=== PATIENT | female | born 1980 ===

== ENCOUNTER 2016-10-20 20:22 | Emergency (ER) | payer OTHER ==
[2016-10-20 20:22] VITALS: BMI 21.2
[2016-10-20 20:33] VITALS: TEMP 98.9; O2SAT 99
[2016-10-20] MEDS ORDERED: TDAP Vaccine 0.5 mL Syr IM ONE (20:52)
--- NOTE | 2016-10-20 20:56 | ED PDOC ---
Arrival/HPI - General Chief Complaint: Abnormal Skin Integrity Time Seen by Provider: 10/20/16 20:52 Historian: Patient - History of Present Illness Narrative History of Present Illness (Text): 10/20/16 20:54 36-year-old female presents today with a laceration to the right hand between the fourth and fifth fingers. Patient states she was washing a glass and there was a broken piece that cut her finger. She denies foreign body sensation. Denies numbness weakness or tingling in the extremity. Denies decreased range of motion of the fingers. Patient is unsure of her last tetanus shot. Incident occurred prior to arrival. No other complaints Time/Duration: Prior to Arrival Symptom Onset: Sudden Symptom Course: Improving Quality: Stabbing Severity Level: 1 Past Medical History - Provider Review Nursing Documentation Reviewed: Yes - Travel History Have you recently traveled outside [place] w/in the past 3 mons?: No - Tetanus Immunization Tetanus Immunization: Unknown - Past Medical History Past Medical History: No Previous - Psychiatric Hx Substance Use: No - Past Surgical History Past Surgical History: No Previous - Surgical History Hx Tubal Ligation: Yes - Suicidal Assessment Feels Threatened In Home Enviroment: No Family/Social History - Physician Review Nursing Documentation Reviewed: Yes Family/Social History: Unknown Family HX Smoking Status: Never Smoked Hx Alcohol Use: No Hx Substance Use: No Allergies/Home Meds Allergies/Adverse Reactions: Allergies ibuprofen Allergy (Verified 10/20/16 20:34) SWELLING walnut Allergy (Verified 10/20/16 20:34) ANAPHYLAXIS Review of Systems - Review of Systems Constitutional: absent: Fatigue, Fevers Respiratory: absent: SOB, Cough Cardiovascular: absent: Chest Pain, Palpitations Gastrointestinal: absent: Abdominal Pain, Nausea, Vomiting Musculoskeletal: Arthralgias. absent: Back Pain, Neck Pain Skin: Laceration. absent: Rash, Pruritis Neurological: absent: Headache, Dizziness Psychiatric: absent: Anxiety, Depression Physical Exam Vital Signs Reviewed: Yes Vital Signs Temp Pulse Resp BP Pulse Ox 10/20/16 20:33 98.9 F 95 H 18 119/78 99 Temperature: Afebrile Blood Pressure: Normal Pulse: Regular Respiratory Rate: Normal Appearance: Positive for: Well-Appearing, Non-Toxic, Comfortable Pain Distress: None Mental Status: Positive for: Alert and Oriented X 3 - Systems Exam Head: Present: Atraumatic Respiratory/Chest: Present: Clear to Auscultation Cardiovascular: Present: Regular Rate and Rhythm Upper Extremity: Present: Normal ROM, NORMAL PULSES, Tenderness (right hand; there is minimal tenderness along the webspacing of the 4th and 5th fingers with a 1cm c shaped laceration; no active bleeding; full rom of fingers sensation and distal pulses intact. ), Neurovascularly Intact, Capillary Refill < 2s. No: Swelling, Erythema, Deformity Skin: Present: Warm, Dry, Normal Color Psychiatric: Present: Alert, Oriented x 3 Medical Decision Making ED Course and Treatment: 10/20/16 21:01 Patient is nontoxic well appearing in no distress. Vital signs are stable. Wound irrigated well with high pressure irrigation Tetanus updated tylenol PO Laceration repair: [address] Bacitracin and dressing applied Patient was advised to keep the wound clean and dry, apply bacitracin twice daily. Advised to return immediately if signs of infection develop or return if any other concerning symptoms develop Impression: Laceration, hand Tylenol; every 4 hours as needed for pain keflex; 1 capsule 4 times daily x 5 days Keep the wound clean and dry, apply bacitracin twice daily Return in 7-10 days for suture removal Return immediately if signs of infection develop: High fevers, increasing pain, redness, swelling, purulent discharge Follow up with the hand/plastic surgeon within the next 2 days. Followup with primary care physician within the next 2 days Return if any other concerning symptoms develop Procedure: Wound Repair - Procedure Procedure: Wound Repair: laceration, right hand - Consent Obtained Consent obtained: Verbal - Performed by Performed by: Mid-level Provider - Indications Indication(s):: Laceration - Location Location:: Right, Hand (between 4th and 5th fingers) Shape:: Curvilinear Dimensions Length cm: 1cm Depth:: Epidermis - Anesthetic Technique Anesthetic Technique: Local Local/Regional Anesthetic:: Lidocaine 1% (2cc) - Debris Debris:: None - Irrigated Irrigated with ml of normal saline: copious amounts of NS using high pressure irrigation - Complexity Complexity:: Simple (one layer) - Wound repair method Sutures:: # (3), Size (5.0), Type (prolene), Technique (interrupted) - Complications Complications: none - Patient tolerated procedure Patient Tolerated Procedure:: Well Disposition/Present on Arrival - Present on Arrival Any Indicators Present on Arrival: No History of DVT/PE: No History of Uncontrolled Diabetes: No Urinary Catheter: No History of Decub. Ulcer: No History Surgical Site Infection Following: None - Disposition Have Diagnosis and Disposition been Completed?: Yes Diagnosis: Laceration of hand Disposition: HOME/ ROUTINE Disposition Time: 21:03 Patient Plan: Discharge Condition: GOOD Discharge Instructions (ExitCare): Laceration (ED), Care For Your Stitches (ED) Additional Instructions: Tylenol; every 4 hours as needed for pain keflex; 1 capsule 4 times daily x 5 days Keep the wound clean and dry, apply bacitracin twice daily Return in 7-10 days for suture removal Return immediately if signs of infection develop: High fevers, increasing pain, redness, swelling, purulent discharge Follow up with the hand/plastic surgeon within the next 2 days. Followup with primary care physician within the next 2 days Return if any other concerning symptoms develop Prescriptions: Cephalexin [Keflex] 500 mg PO QID #20 capsule Referrals: Seven Dove MD [Staff Provider] - Follow up with primary Supa Figueroa MD [Staff Provider] - Follow up with primary Forms: [employer] (Amharic)
[2016-10-20 21:55] VITALS: BP 112/61; PULSE 72; RESP 16
== END 2016-10-20 21:55 | disposition home or self-care (01) ==
LOC: ED 20:22
DX: S61.411A Laceration without foreign body of right hand, initial encounter (principal); W25.XXXA Contact with sharp glass, initial encounter; Y93.G1 Activity, food preparation and clean up; Y92.89 Other specified places as the place of occurrence of the external cause; Z23 Encounter for immunization

== ENCOUNTER 2017-07-05 06:08 | Emergency (ER) | payer MEDICAID, OTHER ==
[2017-07-05 06:11] VITALS: BMI 22.3
[2017-07-05 06:16] VITALS: RESP 18; O2SAT 99
--- NOTE | 2017-07-05 06:27 | ED PDOC ---
Arrival/HPI - General Time Seen by Provider: 07/05/17 06:12 Historian: Spouse, EMS - History of Present Illness Narrative History of Present Illness (Text): 07/05/17 06:19 Alysa Campos is a 36 year old female, with no significant past medical history , who presents to the Emergency department brought in by EMS accompanied by spouse complaining of altered mental status. states patient woke up today and stated she was not feeling well. states he went back to sleep and when he woke up again, patient was lying on the floor. Patient on arrival appears confused, states she "wants to go to sleep," and "my kids are here," however patient's children are back home. Patient reports some abdominal pain. Limited HPI and ROS secondary to patient's altered mental status. Time/Duration: Prior to Arrival Symptom Onset: Sudden Symptom Course: Unchanged Activities at Onset: Light Context: Home Past Medical History - Provider Review Nursing Documentation Reviewed: Yes - Infectious Disease Hx of Infectious Diseases: None - Tetanus Immunization Tetanus Immunization: Unknown - Past Medical History Past Medical History: No Previous - Cardiac Hx Cardiac Disorders: No - Pulmonary Hx Respiratory Disorders: No - Neurological Hx Neurological Disorder: No - HEENT Hx HEENT Disorder: Yes (SEASONAL ALLERGIES) - Renal Hx Renal Disorder: No - Endocrine/Metabolic Hx Endocrine Disorders: No - Hematological/Oncological Hx Blood Disorders: No - Integumentary Hx Dermatological Disorder: No - Musculoskeletal/Rheumatological Hx Musculoskeletal Disorders: No - Gastrointestinal Hx Gastrointestinal Disorders: Yes Hx Gastritis: Yes Hx Gastroesophageal Reflux: Yes - Genitourinary/Gynecological Hx Genitourinary Disorders: No - Psychiatric Hx Psychophysiologic Disorder: No Hx Substance Use: No - Past Surgical History Past Surgical History: No Previous - Surgical History Hx Tubal Ligation: Yes - Anesthesia Hx Anesthesia: Yes Hx Anesthesia Reactions: No Hx Malignant Hyperthermia: No - Suicidal Assessment Feels Threatened In Home Enviroment: No Family/Social History - Physician Review Nursing Documentation Reviewed: Yes Family/Social History: Unknown Family HX Smoking Status: Never Smoked Hx Alcohol Use: No Hx Substance Use: No Allergies/Home Meds Allergies/Adverse Reactions: Allergies ibuprofen Allergy (Verified 07/05/17 06:11) SWELLING polyethylene glycol 3350 Allergy (Verified 07/05/17 06:11) ITCHING walnut Allergy (Verified 07/05/17 06:11) ANAPHYLAXIS Home Medications: Home Meds Medication Instructions Recorded Confirmed Cetirizine HCl 1 tab PO DAILY 01/26/17 07/05/17 Review of Systems - Review of Systems Systems not reviewed;Unavailable: Altered Mental Status Physical Exam Vital Signs Reviewed: Yes Vital Signs Temp Pulse Resp BP Pulse Ox 07/05/17 08:51 99.9 F H 18 L 18 105/79 99 07/05/17 08:47 99.9 F H 88 18 105/79 99 07/05/17 06:15 97.3 F L 81 18 116/73 99 Temperature: Afebrile Blood Pressure: Normal Respiratory Rate: Normal Appearance: Positive for: Non-Toxic Mental Status: Positive for: Confused Finger Stick Blood Glucose: 117 - Systems Exam Head: Present: Atraumatic, Normocephalic Pupils: Present: PERRL Extroacular Muscles: Present: EOMI Conjunctiva: Present: Normal Mouth: Present: Moist Mucous Membranes Neck: Present: Normal Range of Motion Respiratory/Chest: Present: Clear to Auscultation, Good Air Exchange. No: Respiratory Distress, Accessory Muscle Use Cardiovascular: Present: Regular Rate and Rhythm, Normal S1, S2. No: Murmurs Abdomen: No: Tenderness, Distention, Peritoneal Signs Upper Extremity: Present: Normal Inspection. No: Cyanosis, Edema Lower Extremity: Present: Normal Inspection. No: Edema Neurological: Present: GCS=15, Speech Normal, Motor Func Grossly Intact, Normal Sensory Function Skin: Present: Warm, Dry, Normal Color. No: Rashes Psychiatric: Present: Other (Confused) Medical Decision Making ED Course and Treatment: 07/05/17 06:19 Impression: 36 year old female brought in for altered mental status, was found lying on the floor by this morning. Plan: -- EKG -- Labs, alcohol level, ammonia level, cardiac enzymes, TSH -- Urinalysis, urine drug screen -- Reassess and disposition Progress Notes: Reviewed EKG, NSR at [address]-segment elevations or depressions, no T-wave inversions, normal intervals. - Lab Interpretations Lab Results: 07/05/17 07:00 07/05/17 07:00 Lab Results 07/05/17 07:27: Urine Opiates Screen Negative, Urine Methadone Screen Negative, Ur Barbiturates Screen Negative, Ur Phencyclidine Scrn Negative, Ur Amphetamines Screen Negative, U Benzodiazepines Scrn Negative, U Oth Cocaine Metabols Negative, U Cannabinoids Screen Negative 07/05/17 07:09: Urine Color Yellow, Urine Appearance Clear, Urine pH 7.5, Ur Specific [place] 1.015, Urine Protein Trace H, Urine Glucose (UA) Negative, Urine Ketones Negative, Urine Blood Negative, Urine Nitrate Negative, Urine Bilirubin Negative, Urine Urobilinogen 1.0 H, Ur Leukocyte Esterase Negative, Urine RBC 0 - 2, Urine WBC 2 - 5, Ur Epithelial Cells 6 - 8, Urine Bacteria Many , Urine Other Uyeast 07/05/17 07:00: Acetaminophen < 10.0 L 07/05/17 07:00: TSH 3rd Generation 2.36, Alcohol, Quantitative < 10 07/05/17 07:00: Sodium 143, Potassium 4.2, Chloride 106, Carbon Dioxide 24, Anion Gap 18, BUN 16, Creatinine 0.7, Est GFR ( Amer) > 60, Est GFR (Non- Af Amer) > 60, Random Glucose 134 H, Calcium 8.9, Phosphorus 2.5, Magnesium 1.9 , Total Bilirubin 0.1 L, AST 22, ALT 38, Alkaline Phosphatase 64, Lactate Dehydrogenase 412, Total Creatine Kinase 79, Troponin I < 0.01, Total Protein 7.4, Albumin 4.3, Globulin 3.0, Albumin/Globulin Ratio 1.4 07/05/17 07:00: PT 11.3, INR 0.98, APTT 24.7 L 07/05/17 07:00: WBC 10.3, RBC 3.98, Hgb 12.0, Hct 35.7 L, MCV 89.7, MCH 30.2, MCHC 33.6, RDW 12.5, Plt Count 164, MPV 11.6 H, Gran % 73.5 H, Lymph % (Auto) 23.1, [place] % (Auto) 2.0, Eos % (Auto) 1.3 L, Baso % (Auto) 0.1, Gran # 7.55 H, Lymph # (Auto) 2.4, [place] # (Auto) 0.2, Eos # (Auto) 0.1, Baso # (Auto) 0.01 07/05/17 06:14: POC Glucose (mg/dL) 117 H - RAD Interpretation Radiology Orders: 05/10/18 06:46 HEAD W/O CONTRAST [CT] Stat - EKG Interpretation Interpreted by ED Physician: Yes Type: 12 lead EKG - Transfer of Care Patient signed out to Dr:: turner labs ct and dispo - Scribe Statement The provider has reviewed the documentation as recorded by the Jak Schwartz Provider Scribe Attestation: All medical record entries made by the Scribe were at my direction and personally dictated by me. I have reviewed the chart and agree that the record accurately reflects my personal performance of the history, physical exam, medical decision making, and the department course for this patient. I have also personally directed, reviewed, and agree with the discharge instructions and disposition. Disposition/Present on Arrival - Present on Arrival Any Indicators Present on Arrival: No History of DVT/PE: No History of Uncontrolled Diabetes: No Urinary Catheter: No History of Decub. Ulcer: No History Surgical Site Infection Following: None - Disposition Have Diagnosis and Disposition been Completed?: Yes Diagnosis: Anxiety Disposition: HOME/ ROUTINE Disposition Time: 07:00 Condition: GOOD Discharge Instructions (ExitCare): Anxiety, Adult (DC) Additional Instructions: Thank you for letting us take care of you today. The emergency medical care you received today was directed at your acute symptoms. If you were prescribed any medication, please fill it and take as directed. It may take several days for your symptoms to resolve. Return to the Emergency Department if your symptoms worsen, do not improve, or if you have any other problems. Please contact your doctor or call one of the physicians/clinics you have been referred to that are listed on the Patient Visit Information form that is included in your discharge packet. Bring any paperwork you were given at discharge with you along with any medications you are taking to your follow up visit. Our treatment cannot replace ongoing medical care by a primary care provider (PCP) outside of the emergency department. Thank you for allowing the [facility] team to be part of your care today. Follow up with your primary doctor in 1-2 days. He/she may refer you to a psychologist. Please return to the emergency room if you have any concerns. Referrals: [employer] [facility], [Non-Staff] - Follow up with primary Forms: [employer] (Occitan)
[2017-07-05 07:08] LABS: BASO # 0.01 K/mm3 (0.0-2.0); BASO % 0.1 % (0.0-3.0); EOS # 0.1 (0.0-0.7); EOS % 1.3 % (1.5-5.0); GRAN # 7.55 (1.4-6.5); GRAN % 73.5 % (50.0-68.0); LYMPH # 2.4 (1.2-3.4); LYMPH % 23.1 % (22.0-35.0); MEAN CELL VOLUME 89.7 fl (80.0-105.0); MEAN CORPUSCULAR HEMOGLOBIN 30.2 pg (25.0-35.0); MEAN CORPUSCULAR HGB CONC 33.6 g/dl (31.0-37.0); MEAN PLATELET VOLUME 11.6 fl (7.0-11.0); MONO # 0.2 (0.1-0.6); RBC 3.98 10^6/uL (3.5-6.1); RED CELL DISTRIBUTION WIDTH 12.5 % (11.5-14.5); WHITE BLOOD COUNT 10.3 10^3/ul (4.5-11.0)
--- NOTE | 2017-07-05 07:08 | ED PDOC ---
Physical Exam Vital Signs Temp Pulse Resp BP Pulse Ox 07/05/17 08:51 99.9 F H 18 L 18 105/79 99 07/05/17 08:47 99.9 F H 88 18 105/79 99 07/05/17 06:15 97.3 F L 81 18 116/73 99 Finger Stick Blood Glucose: 117 Medical Decision Making ED Course and Treatment: 07/05/17 07:00 Case signed out to me by Dr. Thakur. Patient is a 36 year old female, with no significant past medical history, who was brought in via EMS, accompanied by spouse complaining of altered mental status. states patient woke up earlier and stated she was not feeling well. states he went back to sleep and when he woke up again, patient was lying on the floor. Currently pending CT scan and labs. 07/05/17 08:[address]: Creator : STEPHANIE WEBSTER FINDINGS: Brain: Unremarkable. No hemorrhage. No significant white matter disease. No edema. Ventricles: Unremarkable. No ventriculomegaly. Bones/joints: Unremarkable. No acute fracture. Soft tissues: Unremarkable. Sinuses: Unremarkable as visualized. No acute sinusitis. Mastoid air cells: Unremarkable as visualized. No mastoid effusion. IMPRESSION: Unremarkable head/brain CT. - Lab Interpretations Lab Results: 07/05/17 07:00 07/05/17 07:00 Lab Results 07/05/17 07:27: Urine Opiates Screen Negative, Urine Methadone Screen Negative, Ur Barbiturates Screen Negative, Ur Phencyclidine Scrn Negative, Ur Amphetamines Screen Negative, U Benzodiazepines Scrn Negative, U Oth Cocaine Metabols Negative, U Cannabinoids Screen Negative 07/05/17 07:09: Urine Color Yellow, Urine Appearance Clear, Urine pH 7.5, Ur Specific [place] 1.015, Urine Protein Trace H, Urine Glucose (UA) Negative, Urine Ketones Negative, Urine Blood Negative, Urine Nitrate Negative, Urine Bilirubin Negative, Urine Urobilinogen 1.0 H, Ur Leukocyte Esterase Negative, Urine RBC 0 - 2, Urine WBC 2 - 5, Ur Epithelial Cells 6 - 8, Urine Bacteria Many , Urine Other Uyeast 07/05/17 07:00: Acetaminophen < 10.0 L 07/05/17 07:00: TSH 3rd Generation 2.36, Alcohol, Quantitative < 10 07/05/17 07:00: Sodium 143, Potassium 4.2, Chloride 106, Carbon Dioxide 24, Anion Gap 18, BUN 16, Creatinine 0.7, Est GFR ( Amer) > 60, Est GFR (Non- Af Amer) > 60, Random Glucose 134 H, Calcium 8.9, Phosphorus 2.5, Magnesium 1.9 , Total Bilirubin 0.1 L, AST 22, ALT 38, Alkaline Phosphatase 64, Lactate Dehydrogenase 412, Total Creatine Kinase 79, Troponin I < 0.01, Total Protein 7.4, Albumin 4.3, Globulin 3.0, Albumin/Globulin Ratio 1.4 07/05/17 07:00: PT 11.3, INR 0.98, APTT 24.7 L 07/05/17 07:00: WBC 10.3, RBC 3.98, Hgb 12.0, Hct 35.7 L, MCV 89.7, MCH 30.2, MCHC 33.6, RDW 12.5, Plt Count 164, MPV 11.6 H, Gran % 73.5 H, Lymph % (Auto) 23.1, [place] % (Auto) 2.0, Eos % (Auto) 1.3 L, Baso % (Auto) 0.1, Gran # 7.55 H, Lymph # (Auto) 2.4, [place] # (Auto) 0.2, Eos # (Auto) 0.1, Baso # (Auto) 0.01 07/05/17 06:14: POC Glucose (mg/dL) 117 H - RAD Interpretation Radiology Orders: 07/05/17 06:46 HEAD W/O CONTRAST [CT] Stat - Scribe Statement The provider has reviewed the documentation as recorded by the Jak Fernandez Provider Scribe Attestation: All medical record entries made by the Scribe were at my direction and personally dictated by me. I have reviewed the chart and agree that the record accurately reflects my personal performance of the history, physical exam, medical decision making, and the department course for this patient. I have also personally directed, reviewed, and agree with the discharge instructions and disposition. Disposition/Present on Arrival - Present on Arrival Any Indicators Present on Arrival: No History of DVT/PE: No History of Uncontrolled Diabetes: No Urinary Catheter: No History of Decub. Ulcer: No History Surgical Site Infection Following: None - Disposition Have Diagnosis and Disposition been Completed?: Yes Diagnosis: Anxiety Disposition: HOME/ ROUTINE Disposition Time: 08:15 Condition: GOOD Discharge Instructions (ExitCare): Anxiety, Adult (DC) Additional Instructions: Thank you for letting us take care of you today. The emergency medical care you received today was directed at your acute symptoms. If you were prescribed any medication, please fill it and take as directed. It may take several days for your symptoms to resolve. Return to the Emergency Department if your symptoms worsen, do not improve, or if you have any other problems. Please contact your doctor or call one of the physicians/clinics you have been referred to that are listed on the Patient Visit Information form that is included in your discharge packet. Bring any paperwork you were given at discharge with you along with any medications you are taking to your follow up visit. Our treatment cannot replace ongoing medical care by a primary care provider (PCP) outside of the emergency department. Thank you for allowing the [facility] team to be part of your care today. Follow up with your primary doctor in 1-2 days. He/she may refer you to a psychologist. Please return to the emergency room if you have any concerns. Referrals: [employer] Jose Raul Recorey, [Primary Care Provider] - Follow up with primary Forms: [employer] ([place])
[2017-07-05 07:22] LABS: ALB/GLOB RATIO 1.4 (1.1-1.8); ALBUMIN 4.3 g/dL (3.0-4.8); ALT/SGPT 38 U/L (7-56); AST/SGOT 22 U/L (14-36); BLOOD UREA NITROGEN 16 mg/dL (7-21); CALCIUM 8.9 mg/dL (8.4-10.5); GFR AFRICAN-AMERICAN > 60; GFR NON-AFRICAN AMERICAN > 60
[2017-07-05 07:24] LABS: PH,URINE 7.5 (4.7-8.0); URINE BILIRUBIN NEGATIVE (NEGATIVE); URINE BLOOD NEGATIVE (NEGATIVE); URINE GLUCOSE (UA) NEGATIVE (NEGATIVE); URINE LEUKOCYTE ESTERASE NEGATIVE Leu/uL (NEGATIVE); URINE PROTEIN TRACE mg/dL (<30 mg/dL)
[2017-07-05 07:29] LABS: URINE APPEARANCE CLEAR (CLEAR); URINE COLOR YELLOW (YELLOW)
[2017-07-05 07:32] LABS: TROPONIN I < 0.01 ng/mL
[2017-07-05 07:34] LABS: URINE RBC 0 - 2 /hpf (0-2)
[2017-07-05 07:35] LABS: URINE BACTERIA MANY (NEG)
[2017-07-05 07:37] LABS: INR 0.98 (0.93-1.08); PARTIAL THROMBOPLASTIN TIME 24.7 Seconds (25.1-36.5); PROTHROMBIN TIME 11.3 SECONDS (9.4-12.5)
[2017-07-05 07:53] LABS: BARBITURATES, UR NEGATIVE (NEGATIVE); BENZODIAZEPINES, UR NEGATIVE (NEGATIVE); OPIATES, UR NEGATIVE (NEGATIVE); PHENCYCLIDINE, UR NEGATIVE (NEGATIVE)
--- NOTE | 2017-07-05 08:06 | CT ---
EXAM: CT Head Without Intravenous Contrast CLINICAL HISTORY: 36 years old, female; Signs and symptoms; Altered mental status/memory loss; Confusion or disorientation; Additional info: AMS TECHNIQUE: Axial computed tomography images of the head/brain without intravenous contrast. All CT scans at this facility use one or more dose reduction techniques, viz.: automated exposure control; ma/kV adjustment per patient size (including targeted exams where dose is matched to indication; i.e. head); or iterative reconstruction technique. Coronal and sagittal reformatted images were created and reviewed. COMPARISON: No relevant prior studies available. FINDINGS: Brain: Unremarkable. No hemorrhage. No significant white matter disease. No edema. Ventricles: Unremarkable. No ventriculomegaly. Bones/joints: Unremarkable. No acute fracture. Soft tissues: Unremarkable. Sinuses: Unremarkable as visualized. No acute sinusitis. Mastoid air cells: Unremarkable as visualized. No mastoid effusion. IMPRESSION: Unremarkable head/brain CT.
[2017-07-05 08:51] VITALS: BP 105/79; TEMP 99.9
[2017-07-05 08:53] VITALS: PULSE 18
--- NOTE | 2017-07-05 10:32 | CARD ---
APPROVED REPORT EKG Measurement Heart [id number] <Conclusion> Normal sinus rhythm Mild NSSTW changes
== END 2017-07-05 08:52 | disposition home or self-care (01) ==
LOC: ED 06:08
DX: F41.9 Anxiety disorder, unspecified (principal)
CPT/HCPCS: 70450; 80053; 81001; 82550; 82948; 83615; 83735; 84100; 84443; 84484; 85025; 85610; 85730; 93005; 99284; G0480

== ENCOUNTER 2017-10-28 07:38 | Emergency (ER) | payer OTHER ==
[2017-10-28 07:39] VITALS: BMI 22.3
[2017-10-28 07:50] VITALS: RESP 18; O2SAT 100
--- NOTE | 2017-10-28 08:30 | ED PDOC ---
Arrival/HPI - General Historian: Patient - History of Present Illness Symptom Onset: Gradual Symptom Course: Worsening Quality: Pressure Severity Level: 8 - General Chief Complaint: Female Genitourinary Time Seen by Provider: 10/28/17 07:46 - History of Present Illness Narrative History of Present Illness (Text): 10/28/17 08:26 37 year old female, with a history of PUD and tubal ligation 5 years ago, presents to the ED with right sided pelvic pain that started 4 days ago. Patient states the pain has progressively worsened, described as a constant sharp, squeezing pain that is non-radiating. Patient states Tylenol did help relieve the pain. She also took ampicillin that she had at home from a previous prescription and states that provided no relief. She is unable to sip up straight and has pain with inspiration. Her last period was October 15 and states she passed a very large clot which is not normal for her. She usually has periods at the beginning of the month and noticed some spotting on October 25 that resolved. She has not had a bowel movement in 2 days. She denies any fever, chills, nausea, vomiting, shortness of breath, chest pain, palpitations, pain with urination, or hematuria. PMD: Dr. Jones ([place]) ([facility]) Past Medical History - Provider Review Nursing Documentation Reviewed: Yes - Infectious Disease Hx of Infectious Diseases: None - Tetanus Immunization Tetanus Immunization: Unknown - Past Medical History Past Medical History: No Previous - Cardiac Hx Cardiac Disorders: No - Pulmonary Hx Respiratory Disorders: No - Neurological Hx Neurological Disorder: No - HEENT Hx HEENT Disorder: Yes (SEASONAL ALLERGIES) - Renal Hx Renal Disorder: No - Endocrine/Metabolic Hx Endocrine Disorders: No - Hematological/Oncological Hx Blood Disorders: No - Integumentary Hx Dermatological Disorder: No - Musculoskeletal/Rheumatological Hx Musculoskeletal Disorders: No - Gastrointestinal Hx Gastrointestinal Disorders: Yes Hx Gastritis: Yes Hx Gastroesophageal Reflux: Yes - Genitourinary/Gynecological Hx Genitourinary Disorders: No - Psychiatric Hx Psychophysiologic Disorder: No Hx Substance Use: No - Past Surgical History Past Surgical History: No Previous - Surgical History Hx Tubal Ligation: Yes - Anesthesia Hx Anesthesia: Yes Hx Anesthesia Reactions: No Hx Malignant Hyperthermia: No - Suicidal Assessment Feels Threatened In Home Enviroment: No Family/Social History - Physician Review Nursing Documentation Reviewed: Yes Family/Social History: No Known Family HX Smoking Status: Never Smoked Hx Alcohol Use: No Hx Substance Use: No Allergies/Home Meds Allergies/Adverse Reactions: Allergies ibuprofen Allergy (Verified 10/28/17 07:47) SWELLING polyethylene glycol 3350 Allergy (Verified 10/28/17 07:47) ITCHING walnut Allergy (Verified 10/28/17 07:47) ANAPHYLAXIS Home Medications: Home Meds Medication Instructions Recorded Confirmed No Known Home Med 10/28/17 10/28/17 Review of Systems - Physician Review All systems were reviewed & negative as marked: Yes - Review of Systems Constitutional: absent: Fevers, Night Sweats Eyes: absent: Vision Changes ENT: absent: Tinnitus Respiratory: absent: SOB, Cough Cardiovascular: absent: Chest Pain, Palpitations Gastrointestinal: Abdominal Pain, Constipation. absent: Nausea, Vomiting Genitourinary Female: absent: Dysuria, Hematuria Musculoskeletal: absent: Back Pain, Neck Pain Skin: absent: Rash, Skin Lesions Neurological: absent: Headache, Dizziness Endocrine: absent: Diaphoresis Physical Exam Vital Signs Reviewed: Yes Temperature: Afebrile Blood Pressure: Normal Pulse: Regular Respiratory Rate: Normal Appearance: Positive for: Well-Appearing, Non-Toxic, Uncomfortable Pain Distress: Moderate Mental Status: Positive for: Alert and Oriented X 3 - Systems Exam Head: Present: Atraumatic, Normocephalic Pupils: Present: PERRL Extroacular Muscles: Present: EOMI Conjunctiva: Present: Normal Mouth: Present: Moist Mucous Membranes Respiratory/Chest: Present: Clear to Auscultation, Good Air Exchange. No: Respiratory Distress, Accessory Muscle Use Cardiovascular: Present: Regular Rate and Rhythm, Normal S1, S2. No: Murmurs Abdomen: Present: Tenderness, Guarding. No: Distention, Peritoneal Signs, Rebound, McBurney's Point Tender, Rovsing's Sign Present Neurological: Present: Speech Normal Skin: Present: Warm, Dry Psychiatric: Present: Alert, Oriented x 3 Vital Signs Temp Pulse Resp BP Pulse Ox 10/28/17 11:12 98 F 66 18 107/67 100 10/28/17 11:10 98 F 66 18 107/67 100 10/28/17 07:43 98.3 F 84 18 109/51 L 100 Medical Decision Making ED Course and Treatment: 10/28/17 08:34 37F presents to the ED with new onset, worsening right sided pelvic pain for the past 4 days. UA, CBC, CMP, and Lipase ordered. test negative. Tylenol for pain. NPO diet. Transvaginal US ordered to rule out ovarian cyst or torsion. Date of service: 10/28/2017 HISTORY: r/o cyst vs torsion COMPARISON: None available. TECHNIQUE: Real-time transabdominal pelvic ultrasound was performed. In addition a transvaginal pelvic ultrasound was necessary to better depict pelvic anatomy. FINDINGS: UTERUS: Measures 7.2 x 3.5 x 3.7 cm. ENDOMETRIUM: Measures 3 mm in diameter. CERVIX: Cervix length measures approximately 3.6 cm. 4 mm nabothian cyst. RIGHT OVARY: Measures 3.7 x 2.2 x 2.2 cm. Blood flow is demonstrated. 1.3 cm dominant follicle. LEFT OVARY: Measures 2.4 x 1.3 x 0.9 cm. Blood flow is demonstrated. 0.6 cm follicle. 0.8 cm adnexal cyst. FREE FLUID: Small pelvic free fluid. OTHER FINDINGS: None. IMPRESSION: Bilateral dominant ovarian follicles. 8 mm adnexal cyst. Small pelvic free fluid. Patient states pain has improved with pain medication. 10/28/17 11:08 10/28/17 12:06 (Hans Ham) Patient is a 37 year old female whose past medical history includes PUD and tubal ligation, presenting to the ER with non-radiating worsening/constant right -side pelvic pain. R sided pelvic tenderness on exam. Patient Seen With Resident: In agreement with resident note which contains more details about the patient. Patient was seen and evaluated with resident. Came up with plan and treatment together. 10/28/17 12:39 (Dimitri Arauz) - Lab Interpretations Lab Results: 10/28/17 09:00 10/28/17 09:00 Lab Results 10/28/17 09:00: Sodium 139, Potassium 4.0, Chloride 103, Carbon Dioxide 27, Anion Gap 14, BUN 11, Creatinine 0.6 L, Est GFR ( Amer) > 60, Est GFR ( Non-Af Amer) > 60, Random Glucose 96, Calcium 8.9, Total Bilirubin 0.5, AST 25, ALT 22, Alkaline Phosphatase 67, Total Protein 7.8, Albumin 4.3, Globulin 3.5, Albumin/Globulin Ratio 1.2, Lipase 34 10/28/17 09:00: WBC 10.0, RBC 3.97, Hgb 11.9 L, Hct 34.9 L, MCV 87.9, MCH 30.0, MCHC 34.1, RDW 12.5, Plt Count 157, MPV 12.0 H, Gran % 78.5 H, Lymph % (Auto) 15.9 L, [place] % (Auto) 5.0, Eos % (Auto) 0.4 L, Baso % (Auto) 0.2, Gran # 7.83 H , Lymph # (Auto) 1.6, [place] # (Auto) 0.5, Eos # (Auto) 0.0, Baso # (Auto) 0.02 10/28/17 09:00: Urine Color Yellow, Urine Appearance Clear, Urine pH 8.0, Ur Specific [place] 1.015, Urine Protein Trace H, Urine Glucose (UA) Negative, Urine Ketones Negative, Urine Blood Negative, Urine Nitrate Negative, Urine Bilirubin Negative, Urine Urobilinogen 1.0 H, Ur Leukocyte Esterase Negative, Urine RBC 0 - 2, Urine WBC 0 - 2, Ur Epithelial Cells 1 - 3, Urine Bacteria Few - RAD Interpretation Radiology Orders: 10/28/17 08:25 TRANSVAGINAL [US] Stat - Medication Orders Current Medication Orders: Discontinued Medications Acetaminophen (Tylenol 325mg Tab) 650 mg PO Q6H PRN PRN Reason: Fever >100.4 F Last Admin: 10/28/17 08:44 Dose: 650 mg MAR Pain/Vitals Document 10/28/17 08:44 SRE (Rec: 10/28/17 08:45 SRE [id number]) Pain Reassessment Is This A Pain ReAssessment? Yes Sleep Is patient sleeping during reassessment? No Presence of Pain Presence of Pain Yes Pain Scale Used Pain Scale Used Numeric Location Left, Right or Bilateral Bilateral Pain Location Body Site Abdomen Description Intermittent Intensity 4 Scale Used Numeric Disposition/Present on Arrival - Present on Arrival Any Indicators Present on Arrival: No History of DVT/PE: No History of Uncontrolled Diabetes: No Urinary Catheter: No History of Decub. Ulcer: No History Surgical Site Infection Following: None - Disposition Have Diagnosis and Disposition been Completed?: Yes Disposition Time: 10:56 Patient Plan: Discharge - Disposition Diagnosis: Ovarian cyst Disposition: HOME/ ROUTINE Condition: IMPROVED Discharge Instructions (ExitCare): Ovarian Cyst (DC) Additional Instructions: Please follow up with a concaver outpatient. Tylenol every 4 hours for pain. If symptoms worsen, please return to the emergency room. Referrals: Luis Farley [Medical Doctor] - Follow up with primary [facility] at [facility] [Outside] - Follow up with primary Forms: [facility] ([place])
[2017-10-28 09:19] LABS: URINE BILIRUBIN NEGATIVE (NEGATIVE); URINE BLOOD NEGATIVE (NEGATIVE); URINE GLUCOSE (UA) NEGATIVE (NEGATIVE); URINE LEUKOCYTE ESTERASE NEGATIVE Leu/uL (NEGATIVE); URINE PROTEIN TRACE mg/dL (<30 mg/dL)
[2017-10-28 09:22] LABS: URINE APPEARANCE CLEAR (CLEAR); URINE COLOR YELLOW (YELLOW)
[2017-10-28 09:23] LABS: ALB/GLOB RATIO 1.2 (1.1-1.8); ALBUMIN 4.3 g/dL (3.0-4.8); ALT/SGPT 22 U/L (7-56); AST/SGOT 25 U/L (14-36); BLOOD UREA NITROGEN 11 mg/dL (7-21); CALCIUM 8.9 mg/dL (8.4-10.5); GFR NON-AFRICAN AMERICAN > 60; LIPASE 34 U/L (23-300)
[2017-10-28 09:24] LABS: BASO # 0.02 K/mm3 (0.0-2.0); BASO % 0.2 % (0.0-3.0); EOS % 0.4 % (1.5-5.0); GRAN # 7.83 (1.4-6.5); GRAN % 78.5 % (50.0-68.0); HEMOGLOBIN 11.9 g/dL (12.0-16.0); LYMPH # 1.6 (1.2-3.4); LYMPH % 15.9 % (22.0-35.0); MEAN CELL VOLUME 87.9 fl (80.0-105.0); MEAN CORPUSCULAR HGB CONC 34.1 g/dl (31.0-37.0); MONO # 0.5 (0.1-0.6); RBC 3.97 10^6/uL (3.5-6.1); RED CELL DISTRIBUTION WIDTH 12.5 % (11.5-14.5)
[2017-10-28 09:34] LABS: URINE BACTERIA FEW (NEG); URINE RBC 0 - 2 /hpf (0-2); URINE WBC 0 - 2 /hpf (0-6)
--- NOTE | 2017-10-28 10:45 | US ---
Date of service: 10/28/2017 HISTORY: r/o cyst vs torsion COMPARISON: None available. TECHNIQUE: Real-time transabdominal pelvic ultrasound was performed. In addition a transvaginal pelvic ultrasound was necessary to better depict pelvic anatomy. FINDINGS: UTERUS: Measures 7.2 x 3.5 x 3.7 cm. ENDOMETRIUM: Measures 3 mm in diameter. CERVIX: Cervix length measures approximately 3.6 cm. 4 mm nabothian cyst. RIGHT OVARY: Measures 3.7 x 2.2 x 2.2 cm. Blood flow is demonstrated. 1.3 cm dominant follicle. LEFT OVARY: Measures 2.4 x 1.3 x 0.9 cm. Blood flow is demonstrated. 0.6 cm follicle. 0.8 cm adnexal cyst. FREE FLUID: Small pelvic free fluid. OTHER FINDINGS: None. IMPRESSION: Bilateral dominant ovarian follicles. 8 mm adnexal cyst. Small pelvic free fluid.
[2017-10-28 11:11] VITALS: BP 107/67; PULSE 66; TEMP 98
== END 2017-10-28 11:12 | disposition home or self-care (01) ==
LOC: ED 07:38
DX: N83.202 Unspecified ovarian cyst, left side (principal)